=== PATIENT | female | born 2000 | race Hispanic/Latino ===

== ENCOUNTER → 2022-08-19 14:09 | Outpatient (CLI) | payer OTHER, SELFPAY ==
[2022-08-19 22:53] LABS: Urine N gonorrhoeae NOT DETECTED
[2022-08-19 22:55] LABS: Urine Chlamydia NOT DETECTED
[2022-08-21 12:36] LABS: Candida species Negative (Negative); Gardnerella vaginalis Positive (Negative); Trichomoas vaginalis Negative (Negative)
== END ==
PROVIDERS: Visit Provider Specialist
DX: N89.8 Other specified noninflammatory disorders of vagina (principal); Z34.80 Encounter for supervision of other normal pregnancy, unspecified trimester
CPT/HCPCS: 87480; 87491; 87510; 87591; 87660

== ENCOUNTER → 2022-08-27 14:59 | Outpatient (CLI) | payer OTHER, SELFPAY ==
[2022-08-27 15:53] LABS: Add Manual Diff / Slide Review NO; Basophils Absolute Auto 0 /uL (0-100); Basophils Percent Auto 0.4 % (0-2); Eosinophils Absolute Auto 100 /uL (0-450); Eosinophils Percent Auto 0.7 % (2-4); Hematocrit 31.3 % (36-46); Hemoglobin 10.9 g/dL (12.0-16.0); Lymphocytes Absolute Auto 1900 /uL (1100-4500); Mean Corpuscular HGB Conc 34.7 % (30-36); Mean Corpuscular Volume 80.5 fL (80-100); Monocytes Absolute Auto 400 /uL (0-900); Monocytes Percent Auto 5.5 % (3-14); Neutrophils Absolute Auto 5100 /uL (1500-7000); Neutrophils Percent Auto 68.4 % (50-75); Platelet Count 201 X10^3/uL (150-400); Red Blood Cell Count 3.89 X10^6/uL (4.0-5.2); Red Cell Distribution Width 14.2 % (11.6-14.8); White Blood Cell Count 7.5 X10^3/uL (4.5-11.0)
[2022-08-27 16:59] LABS: Glucose 82 mg/dL (70-100)
[2022-08-27 17:46] LABS: Hepatitis B Surface Antigen NEGATIVE s/c (NEGATIVE); Rubella Antibody IgG 47.2 IU/mL (>15)
[2022-08-27 18:09] LABS: HIV 1 & 2 Ab/Ag 4th Gen Combo NEGATIVE (NEGATIVE); Hep C Virus Ab w/Reflex Quant NEGATIVE s/c (NEGATIVE)
[2022-08-28 04:27] LABS: RPR Screen Non Reactive (Non Reactive)
[2022-08-28 08:47] LABS: Labcorp Hemoglobin (Hb) A1c 5.1 % (4.8-5.6)
[2022-08-28 09:09] LABS: Varicella IgG Antibody 794 index (Immune >165)
[2022-08-30 16:29] LABS: AFP, Serum 49.7 ng/mL (.); Estriol, Free 1.08 ng/mL (.); Inhibin A, Dimeric 156.79 pg/mL (.); Inhibin A, MoM 0.91 (.); Maternal Ethnicity Other (.); Maternal Weight 127 lbs (.); Number of Fetuses No (.); OSBR Risk 1 IN 10000 (.); Results Report (.); Test Results *Screen Negative* (.); hCG, MoM 1.37 (.); hCG, Serum 44143 mIU/mL (.)
== END ==
PROVIDERS: Referring Provider Specialist; Visit Provider Specialist
DX: O24.419 Gestational diabetes mellitus in pregnancy, unspecified control (principal); Z3A.18 18 weeks gestation of pregnancy
CPT/HCPCS: 36415; 80055; 82105; 82677; 82947; 83036; 84702; 86336; 86787; 86803; 86850; 86900; 86901; 87086; 87389

== ENCOUNTER → 2022-09-24 14:55 | Outpatient (CLI) | payer OTHER, SELFPAY ==
--- NOTE | 2022-09-24 14:56 | DI.US.S_ITS ---
PROCEDURE: US OB >= 14 WEEKS FETUS INDICATIONS: ANATOMY SCAN OUTSIDE/PRIOR DATING DATA: Last menstrual period (LMP): 04/19/22. LMP-based estimated date of delivery (VIRGEN): 01/24/23. First dating scan (date and location): This study. Estimated date of delivery (VIRGEN) from first dating scan: 01/24/23. The calculations are made using the current VIRGEN of 01/24/23. TECHNIQUE: Real-time scanning was performed of the fetus, with image documentation and biometric measurements. Endovaginal scanning: Not needed COMPARISON: None. FINDINGS: General: A single living intrauterine gestation is present. Presentation: Breech. Placenta: Placental position is anterior , without previa. Amniotic fluid index: 14.0 cm, normal range is 5-24 cm. Single deepest vertical pocket is 4.8 cm. heart rate: 149 beats per minute. Maternal cervical canal: 3.6 cm long. Normal lower limit is 2.5 cm. biometrics: Biparietal diameter: 5.0 cm, 21 weeks 1 day Head circumference: 19.0 cm, 21 weeks 2 days Abdominal circumference: 16 point 9 cm, 22 weeks 0 days Femur length: 3.6 cm, 21 weeks 4 days Clinically estimated gestational age: 22 weeks 4 days Composite gestational age from present scan: 21 weeks 4 days Estimated weight and percentile: 444 g, 11th percentile Anatomic survey: Neuro: Ventricles are non-dilated at less than 10 mm. Cisterna magna is normal at 3-11 mm. Cerebellum is normal in size and morphology. Nuchal skin fold: Normal at less than 6 mm between 14-21 weeks gestational age. Face: Nose and lips, facial profile are normal. Spine: No evidence for spina bifida. Heart: 4-chambered heart is present, with normal ventricular outflow tracts. Diaphragm: Diaphragm is intact. Stomach: Left-sided stomach is present. Kidneys: No hydronephrosis. Normal is less than 5 mm in 2nd trimester, less than 7 mm in 3rd trimester. Cord: 3-vessel cord has orthotopic insertion. Bladder: Normal in size. Extremities: All 4 extremities identified. IMPRESSION: No anomaly seen. The delivery date is projected to be centered on 01/24/23. Normal amniotic fluid volume. Breech presentation at this time. We strive to produce accurate, complete, and clear reports of imaging services. To assist us in improving patient care, this report was composed using standard report templates and voice recognition software. Therefore, it may contain abnormal punctuation, insertions and/or omissions. Occasional wrong-word or sound-alike substitutions may occur. Though we review the report and make efforts to correct it, we do recommend that the report be read carefully in proper context to recognize any text inaccuracies. Dictated by: Levar Schwartz M.D. on 09/24/2022 at 16:46 Approved by: Levar Schwartz M.D. on 09/24/2022 at 16:51
== END ==
PROVIDERS: Referring Provider Specialist; Visit Provider Specialist
DX: Z34.82 Encounter for supervision of other normal pregnancy, second trimester (principal); Z3A.21 21 weeks gestation of pregnancy
CPT/HCPCS: 76811